=== PATIENT | male | born 1965 | race Hispanic/Latino ===

== ENCOUNTER 2018-06-13 10:27 | Emergency (ER) | payer BC ==
--- NOTE | 2018-06-13 12:51 | RAD ---
RIGHT KNEE FOUR VIEWS: History: Injury, right knee pain. FINDINGS/IMPRESSION: Mild degenerative changes are present. No acute fracture or dislocation is identified. POS: NADIA
== END 2018-06-13 13:16 | disposition home or self-care (01) ==
LOC: SCSER 10:27
DX: S83.91XA Sprain of unspecified site of right knee, initial encounter (principal); I10 Essential (primary) hypertension; Z79.899 Other long term (current) drug therapy; X50.1XXA Overexertion from prolonged static or awkward postures, initial encounter

== ENCOUNTER 2018-06-30 05:45 | Day surgery (SDC) | payer BC ==
[2018-06-27 13:59] VITALS: BMI 36.9
[2018-06-30] MEDS ORDERED: CEFAZOLIN/Water 2 GM/20 ML SYRINGE ONE (06:18)
[2018-06-30] MEDS ORDERED: Fentanyl 100 MCG/2 ML VIAL ONE ×2 (06:29→07:48)
[2018-06-30] MEDS ORDERED: Bupivacaine HCl 0.5%/Epinephrine 1:200,000/PF 30 ml Vial ONE ×2 (06:33→10:46)
[2018-06-30] MEDS ORDERED: PROPOFOL 20 ML ONE (06:39)
--- NOTE | 2018-06-30 08:50 | OP ---
PREOPERATIVE DIAGNOSIS: Medial meniscus tear, right knee. POSTOPERATIVE DIAGNOSIS: Medial meniscus tear, right knee. SURGEON: Go Alexander M.D. ANESTHESIA: General. BLOOD LOSS: Minimal. SPECIMEN: None. DRAINS: None. COMPLICATIONS: None. DESCRIPTION OF PROCEDURE: The patient was taken to the operating room where general anesthesia was i nduced. Right leg was prepped and draped in the usual sterile fashion. No tourniquet was used. Sco pe was placed in the lateral portal and probe was placed in the medial portal. He had a complex tear involving most of the posterior horn of the medial meniscus and some grade III chondromalacia debrid ed unstable cartilaginous flap tears. I debrided the posterior horn of the medial meniscus using bas ket forceps and smoothed using a 4-0 full radius resector. The knee was then irrigated and drained. Sterile dressings applied.
[2018-06-30] MEDS ORDERED: Lidocaine 2% w/Epinephrine 1:200K 20 ML VIAL ONE (10:46)
[2018-06-30] MEDS ORDERED: Dexamethasone 20 MG/5 ML VIAL ONE (11:04)
[2018-06-30] MEDS ORDERED: Ondansetron HCl/PF 4 MG/2 ML Vial ONE (11:04)
[2018-06-30] MEDS ORDERED: PROPOFOL 200 MG/20 ML VIAL ONE (11:04)
== END 2018-06-30 09:40 | disposition home or self-care (01) ==
LOC: SDC 05:45
PROVIDERS: ATTEND Orthopaedic Surgery
PROC: 0SBC4ZZ Excision of Right Knee Joint, Percutaneous Endoscopic Approach (ICD-10-PCS; principal; 2018-06-30)
DX: S83.231A Complex tear of medial meniscus, current injury, right knee, initial encounter (principal); X58.XXXA Exposure to other specified factors, initial encounter; Z79.899 Other long term (current) drug therapy
CPT/HCPCS: G8978-GP-CI; G8979-GP-CI; G8980-GP-CI; J0670; J1100; J2405; J2704; J3010

== ENCOUNTER 2019-01-27 12:49 | Emergency (ER) | payer BC ==
--- NOTE | 2019-01-27 14:48 | RAD ---
3 VIEWS RIGHT SHOULDER: Date: 01/27/19 HISTORY: Right ankle pain and swelling. FINDINGS: There are corticated osseous densities just inferior to the medial malleolus and lateral malleolus, m ay be related to remote avulsion injuries and/or accessory centers of ossification. No acute fracture or dislocation seen. Ankle mortise is congruent. Plantar calcaneal enthesophyte is seen. Mild degene rative changes are seen involving the tarsal bones. There is mild subcutaneous soft tissue swelling a t the medial aspect of the right ankle. IMPRESSION: 1. No acute osseous abnormality of right ankle. 2. Subcutaneous soft tissue swelling. POS: [facility]
== END 2019-01-27 15:14 | disposition home or self-care (01) ==
LOC: SCSER 12:49
DX: M25.571 Pain in right ankle and joints of right foot (principal); L03.115 Cellulitis of right lower limb; I10 Essential (primary) hypertension; Z79.899 Other long term (current) drug therapy

== ENCOUNTER 2022-04-13 06:45 | Outpatient (CLI) | payer BC | END 2022-04-13 06:46 | disposition home or self-care (01) | LOC: BICULT 06:45 | PROVIDERS: ATTEND Physician Assistant | DX: R74.8 Abnormal levels of other serum enzymes (principal); K76.0 Fatty (change of) liver, not elsewhere classified; R16.0 Hepatomegaly, not elsewhere classified | CPT/HCPCS: 76705 ==